=== PATIENT | male | born 1945 | race Caucasian/White ===

== ENCOUNTER → 2017-09-04 | Outpatient (CLI) | payer MEDICARE, OTHER ==
[2015-08-03 14:45] VITALS: BP 156/81
[~2017-09-04] MED LIST: ACET325T16 PO; ALBU2.5V14 NEB; FERR325T72 PO; FINA5TAB4 PO; GENT40VI MC; GUAI600T47 PO; IOHEXOL 300 MG/ML 75 ML VIAL. IV ONE; IPRA3AMP NEB; LINE600I9 IV; PRED50TA PO; TAMS0.4C97 PO; TIOT18CA IH; ZOLP5TAB PO; celexa PO; symbicort INH
--- NOTE | 2017-09-04 17:06 | RAD ---
Chest CTA History: Previous smoker, on oxygen, abnormal chest x-ray, shortness of air Technique: After bolus of intravenous contrast, CT imaging was performed of the chest. Multiplanar reconstruction images to include MIP reconstruction images are submitted. Exposure: One or more of the following individualized dose reduction techniques were utilized for this examination: 1. Automated exposure control 2. Adjustment of the mA and/or kV according to patient size 3. Use of iterative reconstruction technique. Comparison: October 02, 2015 Findings: [ ] No pulmonary embolism is identified. There is prominent right upper lobe density, some air bronchograms present, greatest dimension about 6 m transverse by 5.9 cm AP by about 1.9 cm cc. Findings are new since the previous exam. There is fairly severe emphysema. There is degree of volume loss of the right upper lobe. There is coronary calcification. Thoracic aortic caliber is within normal limits, scattered plaque. There are some calcified mediastinal nodes. There is mild gas distention of esophagus with air-fluid level. There is old T7 compression fracture as seen previously. Impression: 1. There is now abnormal right upper lobe density with some air bronchograms and volume loss, may be component of infectious infiltrate although underlying mass not excludable at this point in time for which short-term follow-up after treatment such as in 2 months advised. There is severe emphysema. 2. No pulmonary embolism is identified. 3. There is coronary calcification. 4. There is mild gas distention of the esophagus with air-fluid level. Electronically signed by: Cisco Chew MD (09/04/2017 5:03 PM) [email or web address]
== END | disposition home or self-care (01) ==
LOC: CT 11:56
PROVIDERS: ATTEND Family Medicine
DX: J43.9 Emphysema, unspecified (principal); I25.10 Atherosclerotic heart disease of native coronary artery without angina pectoris; Z87.891 Personal history of nicotine dependence
CPT/HCPCS: 71275; Q9967

== ENCOUNTER → 2017-11-20 | Outpatient (CLI) | payer MEDICARE, OTHER ==
[2015-08-03 14:45] VITALS: BP 156/81
[~2017-11-20] MED LIST changes: -IOHEXOL 300 MG/ML 75 ML VIAL. IV ONE
--- NOTE | 2017-11-20 09:47 | RAD ---
Examination: CT chest without contrast HISTORY: History of follow-up nodule, COPD COMPARISON: 09/04/2017 TECHNIQUE: Axial CT images of chest were performed without contrast. Coronal and sagittal reformats are performed. Exposure: One or more of the following individualized dose reduction techniques were utilized for this examination: 1. Automated exposure control 2. Adjustment of the mA and/or kV according to patient size 3. Use of iterative reconstruction technique FINDINGS: The visualized thyroid gland grossly appears unremarkable. The central airways are patent. The heart size grossly appears unremarkable. The ascending aorta measures 3.2 cm in transverse dimension. Coronary artery calcifications. No radiologically significant mediastinal lymphadenopathy is identified. Right upper lobe consolidation changes with air bronchograms grossly similar to prior exam. Diffuse emphysematous changes identified in the lungs. The visualized noncontrasted liver, adrenals grossly appears unremarkable. Calcified granulomas identified in the liver and spleen. Severe compression change of T7 vertebral body again identified. IMPRESSION: 1. Right upper lobe consolidation changes with air bronchograms grossly similar to prior exam could be chronic consolidation however bronchial pathology is not completely excluded. Consider bronchoscopic evaluation. 2. Severe bilateral lung emphysematous changes. 3. Coronary artery calcifications. Electronically signed by: Tomy Hare MD (11/20/2017 9:44 AM) [id number]
== END | disposition home or self-care (01) ==
LOC: CT 08:56
PROVIDERS: ATTEND Internal Medicine Pulmonary Disease
DX: I25.10 Atherosclerotic heart disease of native coronary artery without angina pectoris (principal); J44.1 Chronic obstructive pulmonary disease with (acute) exacerbation
CPT/HCPCS: 71250

== ENCOUNTER → 2018-02-19 | Outpatient (CLI) | payer MEDICARE, OTHER ==
[2015-08-03 14:45] VITALS: BP 156/81
[~2018-02-19] MED LIST changes: -IPRA3AMP NEB; +IPRA3AMP29 NEB
--- NOTE | 2018-02-19 17:05 | RAD ---
CT CHEST WO CONTRAST Indication: Lung mass Technique: Noncontrast CT imaging was performed of the chest, multiplanar reconstruction images submitted. One or more of the following individualized dose reduction techniques were utilized for this examination: 1. Automated exposure control 2. Adjustment of the mA and/or kV according to patient size 3. Use of iterative reconstruction technique. Contrast: None Comparison: November 20, 2017 and September 04, 2017 and older exam July 10, 2015 Findings: There is again severe emphysema. There is persistent area of right upper lobe density with air bronchograms, overall stable in appearance. Overall dimension is about 1.9 cm CC by 6.8 cm AP by 4.6 cm transverse. No new infiltrate is identified. There is no new nodularity. There is no pleural or pericardial effusion or pneumothorax. There are again fat-containing Bochdalek hernias bilaterally. There is coronary calcification. Thoracic aortic caliber is within normal limits. There is no new significant lymphadenopathy. There are some calcified mediastinal and right hilar nodes as seen previously. There are some small noncalcified mediastinal nodes as seen previously. There is again old T7 compression fracture. IMPRESSION: 1. Findings are stable comparing with more recent exams although again new findings of the right upper lobe comparing with older 2016 exam. There is a persistent area of abnormal right upper lobe density with air bronchograms for which continued follow-up advised, bronchoscopic evaluation also recommended if this has not been performed. 2. There is again severe emphysema. There are findings of old granulomatous disease. Electronically signed by: Cisco Chew MD (02/19/2018 5:01 PM) [email or web address]
== END | disposition home or self-care (01) ==
LOC: CT 09:46
PROVIDERS: ATTEND Internal Medicine Pulmonary Disease
DX: J43.9 Emphysema, unspecified (principal); D71 Functional disorders of polymorphonuclear neutrophils; M48.54XD Collapsed vertebra, not elsewhere classified, thoracic region, subsequent encounter for fracture with routine healing; I25.10 Atherosclerotic heart disease of native coronary artery without angina pectoris; D63.8 Anemia in other chronic diseases classified elsewhere; Z87.891 Personal history of nicotine dependence
CPT/HCPCS: 71250

== ENCOUNTER 2018-03-01 09:05 | Emergency (ER) | payer MEDICARE, OTHER ==
[2018-03-01] MEDS ORDERED: methylPREDNISolone SOD SUCC PF 125 MG/2 ML VIAL. IV ONE (09:30)
[2018-03-01 09:41] LABS: BASO % 1 % (0-3); EOS % 1 % (0-3); HEMATOCRIT 37.5 % (39.0-53.0); HEMOGLOBIN 12.5 g/dL (13.0-17.5); LYMPH % 12 % (24-48); MEAN CORPUSCULAR HEMOGLOBIN 29 pg (25-35); MEAN CORPUSCULAR HGB CONC 33 g/dL (31-37); MEAN CORPUSCULAR VOLUME 88 fL (79-100); MONO # 0.5 x10^3/uL (0.0-1.1); MONO % 6 % (0-9); NEUT # 6.7 x10^3uL (1.8-7.7); NEUT % 81 % (31-73); PLATELET COUNT 254 x10^3/uL (140-400); RED BLOOD COUNT 4.26 x10^6/uL (4.30-5.70); RED CELL DISTRIBUTION WIDTH 13.7 % (11.5-14.5); WHITE BLOOD COUNT 8.3 x10^3/uL (4.0-11.0)
[2018-03-01] MEDS ORDERED: ALBUTEROL SULFATE 2.5 MG/3 ML NEBU. CONT NEB ONE (09:45)
[2018-03-01] MEDS ORDERED: IPRATROPIUM BROMIDE 0.5 MG/2.5 ML NEBU. NEB ONE (09:45)
--- NOTE | 2018-03-01 09:45 | EKG ---
[address] [address] Test Date: 2018-03-01 Test Time: 09:40:16 Pat Name: IRAIS LAURA Department: Room: Gender: M Lna: : 1945 Requested By: AMANDO GUTIERREZ Order Number: [id number] Reading MD: Roe Benedict Measurements Intervals [place] Rate: 102 P: 65 LA: 168 QRS: 87 QRSD: 86 T: 69 QT: 346 QTc: 455 Interpretive Statements SINUS TACHYCARDIA Electronically Signed On 03-05-2018 11:57:01 CDT by Roe Benedict
[2018-03-01 09:52] LABS: BGAS PH 7.36 (7.35-7.46)
--- NOTE | 2018-03-01 09:57 | RAD ---
Examination: CHEST AP ONLY History: SOB, CHEST PAIN X3 DAYS Comparison/Correlation: 02/19/2018 CT chest without contrast Findings: Portable frontal view chest was obtained. Heart size normal. Pulmonary hyperinflation and diffuse emphysematous involvement again seen. Scarring or linear atelectasis at the right upper lung field level is again seen. No definite effusion. Impression: No new infiltrate. No significant change. Electronically signed by: Kun Sheehan MD (03/01/2018 9:54 AM) [facility]
[2018-03-01 10:02] LABS: ALBUMIN/GLOBULIN RATIO 1.2 (1.0-1.7); CALCIUM 8.7 mg/dL (8.5-10.1); CREATININE 0.5 mg/dL (0.7-1.3); GFR 162.5; POTASSIUM 4.5 mmol/L (3.5-5.1); TOTAL BILIRUBIN 0.4 mg/dL (0.2-1.0); TOTAL PROTEIN 7.4 g/dL (6.4-8.2)
[2018-03-01 10:56] LABS: BACTERIA,URINE FEW /HPF (0-FEW); BILIRUBIN,URINE NEG (NEG); CLARITY,URINE HAZY; COLOR,URINE YELLOW; GLUCOSE,URINE NEG (NEG); NITRITE,URINE NEG (NEG); SQUAMOUS EPITHELIAL CELL,UR FEW /LPF; UROBILINOGEN,URINE 0.2 mg/dL (0.2 mg/dL)
[2018-03-01 12:30] VITALS: BP 138/82
--- NOTE | 2018-03-01 14:41 | ED.ADGEN ---
Past History Past Medical History: COPD Past Surgical History: No Surgical History Adult General Chief Complaint Chief Complaint Resp distress HPI HPI Patient is a 73 yo male history of COPD, chronic respiratory failure on home oxygen who presents with increased shortness of breath, productive cough chest tightness over the past 3 days despite routine inhaler use. No fever, vomiting, chest pain, leg pain swelling. No other acute symptoms or complaints. [] Review of Systems Review of Systems Review symptoms as per history of present illness. All other systems were reviewed and found to be within normal limits, except as documented in this note. Current Medications Current Medications Current Medications Medications (Trade) Dose Ordered Sig/Felipa Start Time Stop Time Status Last Admin Dose Admin Albuterol Sulfate (Ventolin) 10 mg 1X ONCE 03/01/18 09:45 03/01/18 09:46 DC 03/01/18 09:45 10 MG Ipratropium [place] (Atrovent) 1 mg 1X ONCE 03/01/18 09:45 03/01/18 09:46 DC 03/01/18 09:45 1 MG Methylprednisolone Sodium Succinate (SOLU-Medrol 125MG VIAL) 125 mg 1X ONCE 03/01/18 09:30 03/01/18 09:31 DC 03/01/18 09:30 125 MG Allergies Allergies Allergies Coded Allergies Type Severity Reaction Last Updated Verified Sulfa (Sulfonamide Antibiotics) Allergy Unknown 07/31/15 Yes Physical Exam Physical Exam Constitutional: Well developed, well nourished, no acute distress, non-toxic appearance. [] HENT: Normocephalic, atraumatic, bilateral external ears normal, oropharynx moist, nose normal. [] Eyes: PERRLA, EOMI, conjunctiva normal. [] Cardiovascular:Heart rate regular rhythm, no murmur [] Lungs & Thorax: Respirations labored, tachypnea, pursed lip breathing with significantly diminished breath sounds bilaterally with coarse sounds bilaterally.[] Abdomen: Bowel sounds normal, soft, no tenderness.() Skin: Warm, dry, no erythema, no rash. [] Back: No tenderness, no CVA tenderness. [] Extremities: No tenderness, no cyanosis, no edema. [] Neurologic: Alert and oriented X 3, normal motor function, normal sensory function, no focal deficits noted. [] Psychologic: Affect normal, judgement normal, mood normal. [] Current Patient Data Vital Signs Vital Signs Date Time Temp Pulse Resp B/P (MAP) Pulse Ox O2 Delivery O2 Flow Rate FiO2 03/01/18 12:30 110 20 138/82 (100) 97 Nasal Cannula 3.0 03/01/18 09:05 98.0 Lab Results Laboratory Tests Test 03/01/18 09:20 03/01/18 09:25 03/01/18 10:35 Blood pH 7.36 (7.35-7.46) Blood Gas PCO2 48 mmHg (35-46) H Blood Gas PO2 79 mmHg (71-100) Blood Gas HCO3 27 mmol/L (21-28) Arterial Bld O2 Saturation (Calc) 95 % (92-99) FiO2 36 % White Blood Count 8.3 x10^3/uL (4.0-11.0) Red Blood Count 4.26 x10^6/uL (4.30-5.70) L Hemoglobin 12.5 g/dL (13.0-17.5) L Hematocrit 37.5 % (39.0-53.0) L Mean Corpuscular Volume 88 fL (79-100) Mean Corpuscular Hemoglobin 29 pg (25-35) Mean Corpuscular Hemoglobin Concent 33 g/dL (31-37) Red Cell Distribution Width 13.7 % (11.5-14.5) Platelet Count 254 x10^3/uL (140-400) Neutrophils (%) (Auto) 81 % (31-73) H Lymphocytes (%) (Auto) 12 % (24-48) L Monocytes (%) (Auto) 6 % (0-9) Eosinophils (%) (Auto) 1 % (0-3) Basophils (%) (Auto) 1 % (0-3) Neutrophils # (Auto) 6.7 x10^3uL (1.8-7.7) Lymphocytes # (Auto) 1.0 x10^3/uL (1.0-4.8) Monocytes # (Auto) 0.5 x10^3/uL (0.0-1.1) Eosinophils # (Auto) 0.0 x10^3/uL (0.0-0.7) Basophils # (Auto) 0.0 x10^3/uL (0.0-0.2) Sodium Level 134 mmol/L (136-145) L Potassium Level 4.5 mmol/L (3.5-5.1) Chloride Level 97 mmol/L (98-107) L Carbon Dioxide Level 32 mmol/L (21-32) Anion Gap 5 (6-14) L Blood Urea Nitrogen 15 mg/dL (8-26) Creatinine 0.5 mg/dL (0.7-1.3) L Estimated GFR (Cockcroft-Gault) 162.5 BUN/Creatinine Ratio 30 (6-20) H Glucose Level 127 mg/dL (70-99) H Calcium Level 8.7 mg/dL (8.5-10.1) Total Bilirubin 0.4 mg/dL (0.2-1.0) Aspartate Amino Transferase (AST) 20 U/L (15-37) Alanine Aminotransferase (ALT) 22 U/L (16-63) Alkaline Phosphatase 117 U/L (46-116) H Troponin I Quantitative 0.018 ng/mL (0-0.055) SV-Vee-B-Type Natriuretic Peptide 298 pg/mL (0-124) H Total Protein 7.4 g/dL (6.4-8.2) Albumin 4.0 g/dL (3.4-5.0) Albumin/Globulin Ratio 1.2 (1.0-1.7) Urine Collection Type U cath Urine Color Yellow Urine Clarity Hazy Urine pH 5.5 Urine Specific [place] >=1.030 Urine Protein 100 mg/dl (NEG-TRACE) Urine Glucose (UA) Neg mg/dL (NEG) Urine Ketones (Stick) 40 mg/dL (NEG) Urine Blood Trace (NEG) Urine Nitrite Neg (NEG) Urine Bilirubin Neg (NEG) Urine Urobilinogen Dipstick 0.2 mg/dL (0.2 mg/dL) Urine Leukocyte Esterase Neg (NEG) Urine RBC 3-5 /HPF (0-2) Urine WBC 1-4 /HPF (0-4) Urine Squamous Epithelial Cells Few /LPF Urine Transitional Epithelial Cells Few /LPF Urine Bacteria Few /HPF (0-FEW) Urine Mucus Mod /LPF EKG EKG [EKG: Reviewed] Radiology/Procedures Radiology/Procedures [Chest x-ray: No new infiltrate, no significant change per radiology report] Course & Med Decision Making Course & Med Decision Making Pertinent Labs and Imaging studies reviewed. (See chart for details) [COPD exacerbation, steroids, nebs given with clinical improvement. However, the patient will require pulmonology and critical care not available at this facility. Dr. Calderón accepts to [facility].] Final Impression Final Impression [1. COPD exacerbation] Kaleb Disclaimer Dragon Disclaimer This electronic medical record was generated, in whole or in part, using a voice recognition dictation system. AMANDO GUTIERREZ DO Mar 01, 2018 14:41
--- NOTE | 2018-03-01 15:43 | ED.ADGEN ---
Past History Past Medical History: COPD Past Surgical History: No Surgical History Adult General Chief Complaint Chief Complaint SOA HPI HPI Patient is a 73 year old [] Review of Systems Review of Systems Constitutional: Denies fever or chills [] Eyes: Denies change in visual acuity, redness, or eye pain [] HENT: Denies nasal congestion or sore throat [] Respiratory: Denies cough or shortness of breath [] Cardiovascular: No additional information not addressed in HPI [] GI: Denies abdominal pain, nausea, vomiting, bloody stools or diarrhea [] : Denies dysuria or hematuria [] Musculoskeletal: Denies back pain or joint pain [] Integument: Denies rash or skin lesions [] Neurologic: Denies headache, focal weakness or sensory changes [] Endocrine: Denies polyuria or polydipsia [] All other systems were reviewed and found to be within normal limits, except as documented in this note. Current Medications Current Medications Current Medications Medications (Trade) Dose Ordered Sig/Felipa Start Time Stop Time Status Last Admin Dose Admin Albuterol Sulfate (Ventolin) 10 mg 1X ONCE 03/01/18 09:45 03/01/18 09:46 DC 03/01/18 09:45 10 MG Ipratropium [place] (Atrovent) 1 mg 1X ONCE 03/01/18 09:45 03/01/18 09:46 DC 03/01/18 09:45 1 MG Methylprednisolone Sodium Succinate (SOLU-Medrol 125MG VIAL) 125 mg 1X ONCE 03/01/18 09:30 03/01/18 09:31 DC 03/01/18 09:30 125 MG Allergies Allergies Allergies Coded Allergies Type Severity Reaction Last Updated Verified Sulfa (Sulfonamide Antibiotics) Allergy Unknown 07/31/15 Yes Physical Exam Physical Exam Constitutional: Well developed, well nourished, no acute distress, non-toxic appearance. [] HENT: Normocephalic, atraumatic, bilateral external ears normal, oropharynx moist, no oral exudates, nose normal. [] Eyes: PERRLA, EOMI, conjunctiva normal, no discharge. [] Neck: Normal range of motion, no tenderness, supple, no stridor. [] Cardiovascular:Heart rate regular rhythm, no murmur [] Lungs & Thorax: Bilateral breath sounds clear to auscultation [] Abdomen: Bowel sounds normal, soft, no tenderness, no masses, no pulsatile masses. [] Skin: Warm, dry, no erythema, no rash. [] Back: No tenderness, no CVA tenderness. [] Extremities: No tenderness, no cyanosis, no clubbing, ROM intact, no edema. [] Neurologic: Alert and oriented X 3, normal motor function, normal sensory function, no focal deficits noted. [] Psychologic: Affect normal, judgement normal, mood normal. [] Current Patient Data Vital Signs Vital Signs Date Time Temp Pulse Resp B/P (MAP) Pulse Ox O2 Delivery O2 Flow Rate FiO2 03/01/18 12:30 110 20 138/82 (100) 97 Nasal Cannula 3.0 03/01/18 09:05 98.0 Lab Results Laboratory Tests Test 03/01/18 09:20 03/01/18 09:25 03/01/18 10:35 Blood pH 7.36 (7.35-7.46) Blood Gas PCO2 48 mmHg (35-46) H Blood Gas PO2 79 mmHg (71-100) Blood Gas HCO3 27 mmol/L (21-28) Arterial Bld O2 Saturation (Calc) 95 % (92-99) FiO2 36 % White Blood Count 8.3 x10^3/uL (4.0-11.0) Red Blood Count 4.26 x10^6/uL (4.30-5.70) L Hemoglobin 12.5 g/dL (13.0-17.5) L Hematocrit 37.5 % (39.0-53.0) L Mean Corpuscular Volume 88 fL (79-100) Mean Corpuscular Hemoglobin 29 pg (25-35) Mean Corpuscular Hemoglobin Concent 33 g/dL (31-37) Red Cell Distribution Width 13.7 % (11.5-14.5) Platelet Count 254 x10^3/uL (140-400) Neutrophils (%) (Auto) 81 % (31-73) H Lymphocytes (%) (Auto) 12 % (24-48) L Monocytes (%) (Auto) 6 % (0-9) Eosinophils (%) (Auto) 1 % (0-3) Basophils (%) (Auto) 1 % (0-3) Neutrophils # (Auto) 6.7 x10^3uL (1.8-7.7) Lymphocytes # (Auto) 1.0 x10^3/uL (1.0-4.8) Monocytes # (Auto) 0.5 x10^3/uL (0.0-1.1) Eosinophils # (Auto) 0.0 x10^3/uL (0.0-0.7) Basophils # (Auto) 0.0 x10^3/uL (0.0-0.2) Sodium Level 134 mmol/L (136-145) L Potassium Level 4.5 mmol/L (3.5-5.1) Chloride Level 97 mmol/L (98-107) L Carbon Dioxide Level 32 mmol/L (21-32) Anion Gap 5 (6-14) L Blood Urea Nitrogen 15 mg/dL (8-26) Creatinine 0.5 mg/dL (0.7-1.3) L Estimated GFR (Cockcroft-Gault) 162.5 BUN/Creatinine Ratio 30 (6-20) H Glucose Level 127 mg/dL (70-99) H Calcium Level 8.7 mg/dL (8.5-10.1) Total Bilirubin 0.4 mg/dL (0.2-1.0) Aspartate Amino Transferase (AST) 20 U/L (15-37) Alanine Aminotransferase (ALT) 22 U/L (16-63) Alkaline Phosphatase 117 U/L (46-116) H Troponin I Quantitative 0.018 ng/mL (0-0.055) SE-Bam-D-Type Natriuretic Peptide 298 pg/mL (0-124) H Total Protein 7.4 g/dL (6.4-8.2) Albumin 4.0 g/dL (3.4-5.0) Albumin/Globulin Ratio 1.2 (1.0-1.7) Urine Collection Type U cath Urine Color Yellow Urine Clarity Hazy Urine pH 5.5 Urine Specific [place] >=1.030 Urine Protein 100 mg/dl (NEG-TRACE) Urine Glucose (UA) Neg mg/dL (NEG) Urine Ketones (Stick) 40 mg/dL (NEG) Urine Blood Trace (NEG) Urine Nitrite Neg (NEG) Urine Bilirubin Neg (NEG) Urine Urobilinogen Dipstick 0.2 mg/dL (0.2 mg/dL) Urine Leukocyte Esterase Neg (NEG) Urine RBC 3-5 /HPF (0-2) Urine WBC 1-4 /HPF (0-4) Urine Squamous Epithelial Cells Few /LPF Urine Transitional Epithelial Cells Few /LPF Urine Bacteria Few /HPF (0-FEW) Urine Mucus Mod /LPF EKG EKG [] Radiology/Procedures Radiology/Procedures [] Course & Med Decision Making Course & Med Decision Making Pertinent Labs and Imaging studies reviewed. (See chart for details) [] Final Impression Final Impression [1. COPD exacerbation] Dragon Disclaimer Dragon Disclaimer This electronic medical record was generated, in whole or in part, using a voice recognition dictation system. AMANDO GUTIERREZ DO Mar 01, 2018 15:43
== END 2018-03-01 12:45 | disposition short-term general hospital (02) ==
LOC: ER 09:05
DX: J44.1 Chronic obstructive pulmonary disease with (acute) exacerbation (principal); J96.10 Chronic respiratory failure, unspecified whether with hypoxia or hypercapnia; Z99.81 Dependence on supplemental oxygen; Z88.2 Allergy status to sulfonamides
CPT/HCPCS: 36415; 51702; 71045; 80053; 81001; 82803; 83880; 84484; 85025; 87040; 93005; 94640; 96374; 99285; J2930; J7613; J7644